=== PATIENT | male | born 1985 | race Hispanic/Latino ===

== ENCOUNTER 2020-10-06 13:22 | Emergency (ER) | payer OTHER ==
--- NOTE | 2020-10-06 13:54 | RAD REPORT ---
EXAM DESCRIPTION: CT - Head Brain Wo Cont - 10/06/2020 1:49 pm CLINICAL HISTORY: DIZZINESS Headache, drowsiness COMPARISON: No comparisons TECHNIQUE: All CT scans are performed using dose optimization technique as appropriate and may inclu de automated exposure control or mA/KV adjustment according to patient size. FINDINGS: No intracranial hemorrhage, hydrocephalus or extra-axial fluid collection.No areas of brai n edema or evidence of midline shift. The paranasal sinuses and mastoids are clear. The calvarium is intact. IMPRESSION: No acute intracranial abnormality.
[2020-10-06 14:06] LABS: Urine Blood Negative (Negative); Urine Glucose 1+ (Negative); Urine Protein Negative (Negative)
[2020-10-06] MEDS ORDERED: NA CHLORIDE 0.9% 1,000 ML ONE (14:14)
--- NOTE | 2020-10-06 14:18 | RAD REPORT ---
EXAM DESCRIPTION: RAD - Chest Single View - 10/06/2020 2:11 pm CLINICAL HISTORY: COUGH Chest pain. COMPARISON: No comparisons FINDINGS: Portable technique limits examination quality. The lungs are grossly clear. The heart is normal in size. No displaced fractures. IMPRESSION: No acute intrathoracic process suspected.
[2020-10-06 14:22] LABS: Absolute Lymphocytes (CBC) 1.4 K/uL (0.7-4.9); Basophils % 0.6 % (0-1.3); Lymphocytes % 18.3 % (15.3-44.8); MPV 7.7 fL (7.6-11.3); RBC Red Blood Cell Count 4.89 M/uL (4.33-5.43)
[2020-10-06 14:36] LABS: Protime INR 1.14
[2020-10-06 14:46] LABS: Bicarbonate 28 mmol/L (21-32); Potassium 3.7 mmol/L (3.5-5.1); Sodium Level 136 mmol/L (136-145)
[2020-10-06 14:47] LABS: ALT/SGPT 114 U/L (12-78); AST/SGOT 39 U/L (15-37); Albumin 4.5 g/dL (3.4-5.0); Alkaline Phosphatase 72 U/L (45-117); BUN Blood Urea Nitrogen 12 mg/dL (7-18); Bilirubin Direct 0.1 mg/dL (0-0.2); Bilirubin Total 0.4 mg/dL (0.2-1.0); Glucose Level 198 mg/dL (74-106); Lipase 134 U/L (73-393); Magnesium 2.1 mg/dL (1.8-2.4); NT PRO-BNP 8 pg/mL (<125); Protein, Total 8.6 g/dL (6.4-8.2); Troponin (Emerg Dept Use Only) < 0.02 ng/mL (0.0-0.045)
--- NOTE | 2020-10-06 14:49 | EDPHYS ---
Physician Documentation [facility] Name: Peter Guo Age: 34 yrs Sex: Male : 1985 Arrival Date: 10/06/2020 Time: 13:22 Bed 4 Private MD: TAURUS Physician Reinaldo Smith HPI: 10/06 14:17 This 34 yrs old Male presents to ER via Ambulatory with complaints of rebecca Dizziness. 14:17 The patient presents with dizziness, generalized weakness. Onset: The symptoms/episode rebecca began/occurred just prior to arrival. Context: occurred at work. Modifying factors: The symptoms are alleviated by nothing, the symptoms are aggravated by nothing. Associated signs and symptoms: Pertinent positives: nausea. Severity of symptoms: At their worst the symptoms were mild in the emergency department the symptoms are unchanged. Patient's baseline: Neuro: alert and fully oriented. The patient has experienced similar episodes in the past, a few times. Historical: - Allergies: 13:28 No Known Allergies; sv - PMHx: 13:28 Diabetes - NIDDM; Meneire's disease; sv - Immunization history:: Adult Immunizations up to date, Client reports having NOT received the Covid vaccine. - Social history:: Smoking status: Patient denies any tobacco usage or history of. - Family history:: not pertinent. ROS: 14:17 Constitutional: Negative for fever, chills, and weight loss, Eyes: Negative for injury, rebecca pain, redness, and discharge, ENT: Negative for injury, pain, and discharge, Neck: Negative for injury, pain, and swelling, Cardiovascular: Negative for chest pain, palpitations, and edema, Respiratory: Negative for shortness of breath, cough, wheezing, and pleuritic chest pain, Abdomen/GI: Negative for abdominal pain, nausea, vomiting, diarrhea, and constipation, Back: Negative for injury and pain, : Negative for injury, bleeding, discharge, and swelling, MS/Extremity: Negative for injury and deformity, Skin: Negative for injury, rash, and discoloration, Psych: Negative for depression, anxiety, suicide ideation, homicidal ideation, and hallucinations, Allergy/Immunology: Negative for hives, rash, and allergies, Endocrine: Negative for neck swelling, polydipsia, polyuria, polyphagia, and marked weight changes. 14:17 Neuro: Positive for weakness. Exam: 14:17 Constitutional: This is a well developed, well nourished patient who is awake, alert, rebecca and in no acute distress. Head/Face: Normocephalic, atraumatic. Eyes: Pupils equal round and reactive to light, extra-ocular motions intact. Lids and lashes normal. Conjunctiva and sclera are non-icteric and not injected. Cornea within normal limits. Periorbital areas with no swelling, redness, or edema. ENT: Nares patent. No nasal discharge, no septal abnormalities noted. Tympanic membranes are normal and external auditory canals are clear. Oropharynx with no redness, swelling, or masses, exudates, or evidence of obstruction, uvula midline. Mucous membranes moist. Neck: Trachea midline, no thyromegaly or masses palpated, and no cervical lymphadenopathy. Supple, full range of motion without nuchal rigidity, or vertebral point tenderness. No Meningismus. Chest/axilla: Normal chest wall appearance and motion. Nontender with no deformity. No lesions are appreciated. Cardiovascular: Regular rate and rhythm with a normal S1 and S2. No gallops, murmurs, or rubs. Normal PMI, no JVD. No pulse deficits. Respiratory: Lungs have equal breath sounds bilaterally, clear to auscultation and percussion. No rales, rhonchi or wheezes noted. No increased work of breathing, no retractions or nasal flaring. Abdomen/GI: Soft, non-tender, with normal bowel sounds. No distension or tympany. No guarding or rebound. No evidence of tenderness throughout. Back: No spinal tenderness. No costovertebral tenderness. Full range of motion. Male : Normal genitalia with no discharge or lesions. Skin: Warm, dry with normal turgor. Normal color with no rashes, no lesions, and no evidence of cellulitis. MS/ Extremity: Pulses equal, no cyanosis. Neurovascular intact. Full, normal range of motion. Neuro: Awake and alert, GCS 15, oriented to person, place, time, and situation. Cranial nerves II-XII grossly intact. Motor strength 5/5 in all extremities. Sensory grossly intact. Cerebellar exam normal. Normal gait. Psych: Awake, alert, with orientation to person, place and time. Behavior, mood, and affect are within normal limits. 14:19 ECG was reviewed by the Attending Physician. [facility] Vital Signs: 13:28 BP 125 / 85; Pulse 79; Resp 18; Temp 98.9(O); Pulse Ox 99% ; Weight 106.59 kg; Height 5 sv ft. 9 in. (175.26 cm); Pain 0/10; 14:30 BP 136 / 84; Pulse 90; Resp 16; Pulse Ox 97% on R/A; hb 13:28 Body Mass Index 34.70 (106.59 kg, 175.26 cm) sv NIH Stroke Scale Scores: 14:17 NIHSS Score: 0 rebecca MDM: 13:32 Patient medically screened. rebecca 14:19 Differential diagnosis: cardiac arrhythmia, CVA, generalized weakness, head injury, rebecca near-syncope, TIA, vertigo. Data reviewed: vital signs, nurses notes, lab test result(s), EKG, radiologic studies, CT scan, plain films. Data interpreted: nurse monitoring: rate is 89 beats/min, rhythm is Pulse oximetry: on room air is 99 %. Test interpretation: by ED physician or midlevel provider: ECG, plain radiologic studies. 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 10/06 13:33 Order name: Basic Metabolic Panel [facility] 10/06 13:33 Order name: CBC with Diff; Complete Time: 14:45 [facility] 10/06 13:33 Order name: LFT's; Complete Time: 14:47 [facility] 10/06 13:33 Order name: Magnesium; Complete Time: 14:47 [facility] 10/06 13:33 Order name: NT PRO-BNP; Complete Time: 14:47 [facility] 10/06 13:33 Order name: PT-INR; Complete Time: 14:45 [facility] 10/06 13:33 Order name: Troponin (emerg Dept Use Only); Complete Time: 14:47 [facility] 10/06 13:33 Order name: XRAY Chest (1 view); Complete Time: 14:21 [facility] 10/06 13:33 Order name: Lipase; Complete Time: 14:47 [facility] 10/06 13:33 Order name: CT Head Brain wo Cont; Complete Time: 14:21 [facility] 10/06 13:33 Order name: Basic Metabolic Panel; Complete Time: 14:47 [facility] 10/06 13:47 Order name: Glucose, Ancillary Testing; Complete Time: 14:21 [facility] 10/06 14:06 Order name: Urine Dipstick-Ancillary [facility] 10/06 13:33 Order name: EKG; Complete Time: 13:34 [facility] 10/06 13:33 Order name: Cardiac monitoring; Complete Time: 14:21 [facility] 10/06 13:33 Order name: EKG - Nurse/Tech; Complete Time: 14:21 [facility] 10/06 13:33 Order name: IV Saline Lock; Complete Time: 14:21 [facility] 10/06 13:33 Order name: Labs collected and sent; Complete Time: 14:21 [facility] 10/06 13:33 Order name: O2 Per Protocol; Complete Time: 14:20 [facility] 10/06 13:33 Order name: O2 Sat Monitoring; Complete Time: 14:20 [facility] 10/06 13:33 Order name: Urine Dipstick-Ancillary (obtain specimen); Complete Time: 14:21 [facility] EC:19 Rate is 89 beats/min. Rhythm is regular. QRS [place] is Normal. [place] interval is normal. QRS rebecca interval is normal. QT interval is normal. No Q waves. T waves are Normal. No ST changes noted. Clinical impression: Normal ECG and No evidence of ischemia. Interpreted by me. Reviewed by me. Administered Medications: 14:08 Drug: NS 0.9% 1000 ml Route: IV; Rate: 1 bolus; Site: right antecubital; ss 15:00 Follow up: IV Status: Order to discontinue infusion; IV Intake: 500ml em Disposition: 10/06/20 14:48 Discharged to Home. Impression: Dizziness and giddiness, Type 2 diabetes mellitus. - Condition is Stable. - Discharge Instructions: Type 2 Diabetes Mellitus, Diagnosis, Adult, Dizziness, Near-Syncope, Aspirin and Your Heart, Type 2 Diabetes Mellitus, Diagnosis, Adult, [id number], Dizziness, [id number], Type 2 Diabetes Mellitus, Self Care, Adult, Type 2 Diabetes Mellitus, Self Care, Adult, [id number]. - Medication Reconciliation Form, Thank You Letter, Antibiotic Education, Prescription Opioid Use, Work release form, Family Work Release form. - Follow up: Private Physician; When: 2 - 3 days; Reason: Recheck today's complaints, Continuance of care, Re-evaluation by your physician. - Problem is new. - Symptoms have improved. NIH Stroke Scale - NIH Stroke Score Date: 10/06/2020 Time: 14:17 Total Score = 0 1a. Level of Consciousness (LOC) - 0(Alert) 1b. Level of Consciousness (LOC) (Year \T\ Age) - 0(Both) 1c. LOC Commands (Open \T\ Closes Eyes/Water Truck Driver) - 0(Both) 2. Best Gaze (Lateral Gaze Paresis) - 0(Normal) 3. Visual Field Loss - 0(No visual loss) 4. Facial Palsy - 0(Normal) 5a. Left Arm: Motor (10-second hold) - 0(No drift) 5b. Right Arm: Motor (10-second hold) - 0(No drift) 6a. Left Leg: Motor (5-second hold - always test supine) - 0(No drift) 6b. Right Leg: Motor (5-second hold - always test supine) - 0(No drift) 7. Limb Ataxia (finger/nose \T\ heel/martínez - test with eyes open) - 0(Absent) 8. Sensory Loss (pinprick arms/legs/face) - 0(Normal) 9. Best Language: Aphasia (description/naming/reading) - 0(No aphasia) 10. Dysarthria (speech clarity - read or repeat words) - 0(Normal) 11. Extinction and Inattention (visual/tactile/auditory/spatial/personal) - 0(No abnormality) Initials: rebecca Signatures: Dispatcher [employer] Nisreen Negrete RN RN sv Anderson, Corey, MD MD cha Munoz, Edgar, RN RN em Smirch, Shelby, RN RN ss Corrections: (The following items were deleted from the chart) 15:00 14:48 10/06/2020 14:48 Discharged to Home. Impression: Dizziness and giddiness; em Type 2 diabetes mellitus. Condition is Stable. Discharge Instructions: Dizziness, Near-Syncope, Aspirin and Your Heart, Dizziness, [id number], Type 2 Diabetes Mellitus, Diagnosis, Adult, Type 2 Diabetes Mellitus, Diagnosis, Adult, [id number], Type 2 Diabetes Mellitus, Self Care, Adult, Type 2 Diabetes Mellitus, Self Care, Adult, [id number]. Forms are Medication Reconciliation Form, Thank You Letter, Antibiotic Education, Prescription Opioid Use. Follow up: Private Physician; When: 2 - 3 days; Reason: Recheck today's complaints, Continuance of care, Re-evaluation by your physician. Problem is new. Symptoms have improved. rebecca
--- NOTE | 2020-10-06 14:49 | ER ---
Nurse's Notes [facility] Name: Peter Guo Age: 34 yrs Sex: Male : 1985 Arrival Date: 10/06/2020 Time: 13:22 Bed 4 Private MD: Diagnosis: Dizziness and giddiness;Type 2 diabetes mellitus Presentation: 10/06 13:26 Chief complaint: Patient states: dizziness, tunnel vision started today at lunch. "I sv think my sugar dropped too much because I'm on that keto diet.". Coronavirus screen: Client denies travel out of the [place] in the last 14 days. At this time, the client does not indicate any symptoms associated with coronavirus-19. Ebola Screen: No symptoms or risks identified at this time. Risk Assessment: Do you want to hurt yourself or someone else? Patient reports no desire to harm self or others. Onset of symptoms was October 06, 2020. 13:26 Method Of Arrival: Ambulatory sv 13:26 Acuity: DUNG 3 sv 13:28 Initial Sepsis Screen: Does the patient meet any 2 criteria? No. Patient's initial sv sepsis screen is negative. Does the patient have a suspected source of infection? No. Patient's initial sepsis screen is negative. Triage Assessment: 13:26 General: Appears in no apparent distress. comfortable, well developed, Behavior is sv calm, cooperative, appropriate for age. Pain: Denies pain. Neuro: Level of Consciousness is awake, alert, obeys commands, Oriented to person, place, time, situation, Gait is steady, Reports dizziness. Respiratory: Respiratory effort is even, unlabored. Historical: - Allergies: 13:28 No Known Allergies; sv - PMHx: 13:28 Diabetes - NIDDM; Meneire's disease; sv - Immunization history:: Adult Immunizations up to date, Client reports having NOT received the Covid vaccine. - Social history:: Smoking status: Patient denies any tobacco usage or history of. - Family history:: not pertinent. Screenin:35 Abuse screen: Denies threats or abuse. Denies injuries from another. Nutritional hb screening: No deficits noted. Tuberculosis screening: No symptoms or risk factors identified. Fall Risk None identified. Assessment: 13:45 General: Appears in no apparent distress. comfortable, Behavior is calm, cooperative, em appropriate for age. Pain: Denies pain. Neuro: Level of Consciousness is awake, alert, obeys commands, Oriented to person, place, time, situation, Reports dizziness, Denies headache. Cardiovascular: Capillary refill < 3 seconds Patient's skin is warm and dry. Respiratory: Airway is patent Respiratory effort is even, unlabored, Respiratory pattern is regular, symmetrical. GI: Abdomen is flat, Patient currently denies nausea, vomiting. Derm: Skin is intact, is healthy with good turgor, Skin is pink, warm \\T\\ dry. Musculoskeletal: Capillary refill < 3 seconds, Range of motion: intact in all extremities. 14:37 Reassessment: Patient appears in no apparent distress at this time. Patient and/or em family updated on plan of care and expected duration. Pain level reassessed. Patient is alert, oriented x 3, equal unlabored respirations, skin warm/dry/pink. Vital Signs: 13:28 BP 125 / 85; Pulse 79; Resp 18; Temp 98.9(O); Pulse Ox 99% ; Weight 106.59 kg; Height 5 sv ft. 9 in. (175.26 cm); Pain 0/10; 14:30 BP 136 / 84; Pulse 90; Resp 16; Pulse Ox 97% on R/A; hb 13:28 Body Mass Index 34.70 (106.59 kg, 175.26 cm) sv NIH Stroke Scale Scores: 14:17 NIHSS Score: 0 rebecca ED Course: 13:22 Patient arrived in ED. mr 13:26 Arm band placed on. sv 13:27 Triage completed. sv 13:32 Reinaldo Smith MD is Attending Physician. rebecca 13:48 CT Head Brain wo Cont In Process Unspecified. EDMS 13:53 Guanaco Joya, RN is Primary Nurse. em 14:08 Inserted saline lock: 20 gauge in right antecubital area, using aseptic technique. ss ,using aseptic technique. Insertion by [facility] Blanc Blood collected. 14:12 XRAY Chest (1 view) In Process Unspecified. EDMS 14:35 Patient has correct armband on for positive identification. Placed in gown. Bed in low hb position. Call light in reach. Side rails up X 1. 14:59 No provider procedures requiring assistance completed. IV discontinued, intact, em bleeding controlled, No redness/swelling at site. Pressure dressing applied. Administered Medications: 14:08 Drug: NS 0.9% 1000 ml Route: IV; Rate: 1 bolus; Site: right antecubital; 15:00 Follow up: IV Status: Order to discontinue infusion; IV Intake: 500ml em Intake: 15:00 IV: 500ml; Total: 500ml. em Outcome: 14:48 Discharge ordered by . [facility] 14:59 Discharged to home ambulatory, with family. em 14:59 Condition: good 14:59 Discharge instructions given to patient, family, Instructed on discharge instructions, follow up and referral plans. Demonstrated understanding of instructions, follow-up care. 15:00 Patient left the ED. em NIH Stroke Scale - NIH Stroke Score Date: 10/06/2020 Time: 14:17 Total Score = 0 1a. Level of Consciousness (LOC) - 0(Alert) 1b. Level of Consciousness (LOC) (Year \\T\\ Age) - 0(Both) 1c. LOC Commands (Open \\T\\ Closes Eyes/Child Care Leader) - 0(Both) 2. Best Gaze (Lateral Gaze Paresis) - 0(Normal) 3. Visual Field Loss - 0(No visual loss) 4. Facial Palsy - 0(Normal) 5a. Left Arm: Motor (10-second hold) - 0(No drift) 5b. Right Arm: Motor (10-second hold) - 0(No drift) 6a. Left Leg: Motor (5-second hold - always test supine) - 0(No drift) 6b. Right Leg: Motor (5-second hold - always test supine) - 0(No drift) 7. Limb Ataxia (finger/nose \\T\\ heel/martínez - test with eyes open) - 0(Absent) 8. Sensory Loss (pinprick arms/legs/face) - 0(Normal) 9. Best Language: Aphasia (description/naming/reading) - 0(No aphasia) 10. Dysarthria (speech clarity - read or repeat words) - 0(Normal) 11. Extinction and Inattention (visual/tactile/auditory/spatial/personal) - 0(No abnormality) Initials: [facility] Signatures: Dispatcher [employer] Nisreen Negrete RN RN sv Anderson, Corey, MD MD cha Rivera, Guera mr Joya, Guanaco, RN RN em Smirch, Lani, RN RN ss Barnett, Araceli, RN RN hb Corrections: (The following items were deleted from the chart) 13:30 13:28 Pulse 79bpm; Resp 18bpm; Pulse Ox 99%; 106.59 kg; Height 5 ft. 9 in.; sv BMI: 34.7; Pain 0/10; sv
[2020-10-06 15:04] VITALS: TEMP 98.9
[2020-10-06 15:06] VITALS: BP 136/84; O2SAT 97
--- NOTE | 2020-10-07 10:38 | EKG ---
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
== END 2020-10-06 15:00 | disposition home or self-care (01) ==
LOC: ER 13:22
DX: R42 Dizziness and giddiness (principal); E11.9 Type 2 diabetes mellitus without complications
CPT/HCPCS: 93005; 85025; 80048; 36415; 83735; 85610; 82947; 80076; 81003; 84484; 83690; 83880; 70450; 71045; 96360; 99284; J7030